=== PATIENT | female | born 1950 | race Caucasian/White ===

== ENCOUNTER 2021-11-24 07:30 | Observation (INO) ==
[~2021-11-24 07:30] MED LIST: Buffered Lidocaine 1% SYRIN 1 ml INTRADERM ONE; Dexamethasone IV 4 MG/ML VIAL 1 ml VIAL ONE; Lactated Ringers 1000 ml BAG 1,000 ML IV SCH; Lidocaine 2% PF 5 ML VIAL ONE; Midazolam 2 mg/2 ml VIAL 1 mg/ml 2 ml VIAL (2 mg) ONE; Ondansetron 4 mg VIAL 2 MG/ML 2 ml VIAL ONE; Phenylephrine IV 10 MG/ML 1 ml VIAL ONE; Propofol 1,000 MG/100 ML BTL ONE; fentaNYL 100 mcg/2 ml 50 MCG/ML VIAL ONE
[2021-11-24] MEDS ORDERED: Acetaminophen IV 1 GM/100ML 0 ML IV ONE (07:31)
[2021-11-24] MEDS ORDERED: EPHEDrine (Pressors) 50 MG/ML VIAL ONE ×2 (07:46→09:56)
[2021-11-24] MEDS ORDERED: Sterile Water for Inj 10 ML ONE ×2 (07:46→09:56)
[2021-11-24] MEDS ORDERED: Propofol 10 MG/ML 20 ML BTL ONE ×2 (07:58→08:15)
[2021-11-24] MEDS ORDERED: HYDROmorphone 0.5 MG/0.5 ML SYRINGE ONE (08:02)
[2021-11-24] MEDS ORDERED: ceFAZolin 2 GM in NS PREMIX 2 GM/100 ML BAG IVPB ONE (08:12)
[2021-11-24] MEDS ORDERED: Bupivacaine 0.5% 50 ML MDV VIAL ONE (08:43)
[2021-11-24] MEDS ORDERED: Lidocaine 1% MPF 5 ML VIAL ONE (08:44)
[2021-11-24] MEDS ORDERED: Bupivacaine 0.5% SDV PF 30ML VIAL ONE (08:44)
[2021-11-24] MEDS ORDERED: ROPIVACAINE 5 MG/ML 30 ML BTL (0.5%) ONE (08:44)
[2021-11-24] MEDS ORDERED: Naloxone 0.4 mg VIAL 0.4 mg/ml 1 ml VIAL IV PRN (08:48)
[2021-11-24] MEDS ORDERED: DiMENhydriNATE IV 50 mg/ml 1 ml VIAL IV PUSH PRN (08:48)
[2021-11-24] MEDS ORDERED: Ondansetron 4 mg VIAL 2 MG/ML 2 ml VIAL IV PRN ×2 (08:48→10:58)
[2021-11-24] MEDS ORDERED: HYDROmorphone 1 MG/1 ML SYRINGE IV PRN (08:48)
[2021-11-24] MEDS ORDERED: Acetaminophen IV 1 GM/100ML 100 ML IV PRN (08:48)
[2021-11-24] MEDS ORDERED: fentaNYL 100 mcg/2 ml 50 MCG/ML VIAL IV PRN (08:48)
[2021-11-24] MEDS ORDERED: Ropivacaine 5 MG/ML 20 ML VIAL 0.5% (100 MG) ONE (09:12)
[2021-11-24] MEDS ORDERED: Midazolam 2 mg/2 ml VIAL 1 mg/ml 2 ml VIAL (2 mg) ONE (09:32)
[2021-11-24] MEDS ORDERED: Acetaminophen IV 1 GM/100ML 100 ML IV ONE (09:44)
[2021-11-24] MEDS ORDERED: Ondansetron ODT 4 mg TAB 4 MG TAB PO PRN (10:58)
[2021-11-24] MEDS ORDERED: Lactulose 30 ml UDC PO PRN (10:58)
[2021-11-24] MEDS ORDERED: Morphine 2 MG/ML SYRINGE IV PRN (10:58)
[2021-11-24] MEDS ORDERED: diPHENhydraMINE 25 mg TAB PO PRN (10:58)
[2021-11-24] MEDS ORDERED: diPHENhydraMINE IV 50 MG/ML 1 ml VIAL (BENADRYL) IV PRN (10:58)
[2021-11-24] MEDS ORDERED: Magnesium Hydroxide LIQ 30 ML UDC PO PRN (10:58)
[2021-11-24] MEDS ORDERED: ceFAZolin 1 GM ADVAN 1 GM in NS 0.9% 50 ML 50 ML IVPB SCH ×2 (11:00→14:00)
[2021-11-24] MEDS ORDERED: Fluticasone NASAL SPRAY 50MCG 16 gm SPRAY BTL INTRANASAL PRN (11:05)
[2021-11-24] MEDS: Lactated Ringers 1000 ml BAG 1,000 ML IV SCH (13:30)
[2021-11-24] MEDS: ceFAZolin 1 GM ADVAN 1 GM in NS 0.9% 50 ML 50 ML IVPB SCH (17:23)
[2021-11-24] MEDS: Magnesium Hydroxide LIQ 30 ML UDC PO SCH (20:21)
[2021-11-25] MEDS: Lactated Ringers 1000 ml BAG 1,000 ML IV SCH (01:20)
[2021-11-25] MEDS: ceFAZolin 1 GM ADVAN 1 GM in NS 0.9% 50 ML 50 ML IVPB SCH ×2 (01:21→08:32)
[2021-11-25 06:42] LABS: Hematocrit 34 % (35-47); Hemoglobin 11.6 g/dL (12.0-16.0); Mean Platelet Volume 8.8 fL (7.4-10.4); Platelet Count 227 10^3/uL (150-450)
[2021-11-25 06:53] LABS: Calcium 8.5 mg/dL (8.6-10.3); Potassium 4.8 mmol/L (3.5-5.0); eGFR CKD-EPI 75.3 (>60)
[2021-11-25] MEDS: Magnesium Hydroxide LIQ 30 ML UDC PO SCH (08:35)
[2021-11-25] MEDS ORDERED: Vitamin THERAPEUTIC TAB PO SCH (09:00)
[2021-11-25 11:31] VITALS: BP 104/43
== END 2021-11-25 13:30 | disposition home or self-care (01) ==
LOC: AA → INTOOBSV 07:59 → SSU 13:20
PROVIDERS: ADMIT Orthopaedic Surgery Adult Reconstructive Orthopaedic Surgery; ATTEND Orthopaedic Surgery Adult Reconstructive Orthopaedic Surgery